=== PATIENT | male | born 1945 | race Caucasian/White ===

== ENCOUNTER 2024-03-18 03:24 | Emergency (ER) | payer OTHER, MEDICARE ==
[2024-03-18 04:05] LABS: BASOPHILS ABSOLUTE AUTO 0.05 K/uL (0.00-0.10); BASOPHILS PERCENT AUTO 0.6 % (0.1-1.3); EOSINOPHILS ABSOLUTE AUTO 0.23 K/uL (0.00-0.40); EOSINOPHILS PERCENT AUTO 2.8 % (0.0-5.4); HEMATOCRIT 34.5 % (38.4-49.7); IMMATURE GRAN PERCENT AUTO 0.2 % (0.0-0.7); LYMPHOCYTES ABSOLUTE AUTO 2.05 K/uL (0.8-3.3); LYMPHOCYTES PERCENT AUTO 25.3 % (11.4-47.7); MEAN CORPUSCULAR HEMOGLOBIN 32.1 pg (31.6-35.5); MEAN CORPUSCULAR HGB CONC 34.8 g/dL (31.6-35.5); MEAN CORPUSCULAR VOLUME 92.2 fL (81.4-99.0); MONOCYTES ABSOLUTE AUTO 0.73 K/uL (0.20-0.90); NEUTROPHILS ABSOLUTE AUTO 5.01 K/uL (1.0-7.6); NEUTROPHILS PERCENT AUTO 62.1 % (40.0-78.1); PLATELET COUNT,PLT 252 K/uL (130-375); RED BLOOD CELL COUNT 3.74 M/uL (4.14-5.76); WHITE BLOOD CELL COUNT,WBC 8.1 K/uL (3.2-11.0)
[2024-03-18 04:26] LABS: A/G RATIO 1.3 (1.2-2.2); ALANINE AMINOTRANSFERASE,ALT 34 U/L (12-78); ALBUMIN 3.7 g/dL (3.4-5.0); ALKALINE PHOSPHATASE 93 U/L (46-116); ANION GAP 11.4 mmol/L (5.0-14.0); ASPARTATE AMNIOTRANSFERASE,AST 27 U/L (15-37); BILIRUBIN TOTAL 0.5 mg/dL (0.2-1.0); BLOOD UREA NITROGEN,BUN 17 mg/dL (7-18); CALCIUM 9.7 mg/dL (8.5-10.1); CARBON DIOXIDE,CO2 27 mmol/L (21-32); CHLORIDE,CL 104 mmol/L (100-108); EST CRCL DRUG DOSING (CG) 69.91 mL/min; ESTIMATED GFR 78 mL/min (>60); GLUCOSE RANDOM 97 mg/dL (74-106); POTASSIUM,K 3.4 mmol/L (3.6-5.2); PROTEIN TOTAL,TP 6.5 g/dL (6.4-8.2); SODIUM,NA 139 mmol/L (140-148)
[2024-03-18 04:27] LABS: IMMATURE GRAN ABSOLUTE AUTO 0.02 K/uL (0.00-0.23)
[2024-03-18] MEDS: Potassium Chloride 20 MEQ Tab.ER PO ONE (04:49)
[2024-03-18] MEDS: Diltiazem 25 MG/5 ML SDV IVPUSH ONE ×2 (04:50→05:41)
[2024-03-18] MEDS: Furosemide 20 MG/2 ML VIAL IVPUSH ONE (05:09)
[2024-03-18] MEDS: Diltiazem 100 MG in Sodium Chloride 0.9% 100 ML IV SCH (05:18)
[2024-03-18] MEDS ORDERED: Potassium Chloride 20 MEQ Tab.ER PO ONE (07:01)
== END 2024-03-18 07:18 | disposition home or self-care (01) ==
LOC: JP.ED 03:24
DX: I48.91 Unspecified atrial fibrillation (principal); E87.70 Fluid overload, unspecified; Z87.891 Personal history of nicotine dependence; Z90.49 Acquired absence of other specified parts of digestive tract; Z79.899 Other long term (current) drug therapy; Z79.891 Long term (current) use of opiate analgesic
CPT/HCPCS: 36415; 71046; 80053; 83735; 83880; 84484; 85025; 93005; 96374; 96375; 96376; 99285; A9270; J1940; J3490; 93010; 99284